=== PATIENT | female | born 1985 | race Caucasian/White ===

== ENCOUNTER 2016-09-06 08:58 | Emergency (ER) | payer OTHER ==
[2016-09-06 09:15] VITALS: BP 143/70; PULSE 82; TEMP 98.2; BMI 33.2
--- NOTE | 2016-09-06 09:45 | PDOC ---
[id number] 4d NECK PAIN Time Seen by Provider: 09/06/16 09:29 History Source: Patient Exam Limitations: No Limitations - History of Present Illness Initial Comments: 09/06/16 10:07 My Chief Complaint: rt. sided neck pain History of present illness: Patient is a 31-year-old female with a history of gerd here today complaining of right-sided neck pain that radiates to her right mid shoulder area for 10 days with movement. Patient denies any numbness of her right arm radiation of pain down her right arm. Patient denies any injury. Patient has full range of motion of her right arm. 09/06/16 10:09 09/06/16 10:15 09/07/16 19:27 Timing/Duration: getting worse Severity: severe Associated Symptoms: reports: denies symptoms Past History - Past Medical History Allergies/Adverse Reactions: Allergies Allergy/AdvReac Type Severity Reaction Status Date / Time No Known Allergies Allergy Verified 09/06/16 09:12 Home Medications: Ambulatory Orders Cyclobenzaprine HCl [Flexeril -] 10 mg PO Q8H PRN #21 tablet 09/06/16 Naproxen [Naprosyn -] 500 mg PO BID PRN #14 tablet 09/06/16 Anemia: No Asthma: No Cancer: No Cardiac Disorders: No CVA: No COPD: No CHF: No Dementia: No Diabetes: No GI Disorders: Yes (acid reflux) Disorders: No HTN: No Hypercholesterolemia: No Liver Disease: No Seizures: No Thyroid Disease: No - Surgical History Abdominal Surgery: Yes Cholecystectomy: Yes - Reproductive History (#): 2 Para: 1 Cervical CA: No Dysfunctional Uterine Bleeding: No Ectopic : No Endometrial CA: No Endometriosis: No Ovarian CA: No PID: No Polycystic Ovaries: No Therapeutic (s) & number: No Tubal Ligation: No Uterine Fibroids: No Oophorectomy: No - Immunization History Td Vaccination: Yes Immunization Up to Date: Yes - Psycho/Social/Smoking Cessation Hx Anxiety: No Suicidal Ideation: No Smoking Status: No Smoking History: Never smoked Have you smoked in the past 12 months: No Number of Cigarettes Smoked Daily: 0 Information on smoking cessation initiated: No Hx Alcohol Use: No Drug/Substance Use Hx: No Substance Use Type: None Hx Substance Use Treatment: No Review of Systems - Review of Systems Able to Perform ROS?: Yes Constitutional: No: Symptoms Reported HEENTM: No: Symptoms Reported Respiratory: No: Symptoms reported Cardiac (ROS): No: Symptoms Reported ABD/GI: No: Symptoms Reported : No: Symptoms Reported Musculoskeletal: Yes: Neck Pain (right sided radiates to mid rt. shoulder ) Integumentary: No: Symptoms Reported Neurological: No: Symptoms reported *Physical Exam - Vital Signs Last Vital Signs Temp Pulse Resp BP Pulse Ox 98.2 F 82 18 143/70 100 09/06/16 09:13 09/06/16 09:13 09/06/16 09:13 09/06/16 09:13 09/06/16 09:13 - Physical Exam General Appearance: Yes: Appropriately Dressed Neck: positive: Tender (right lateraal ), Decreased range of motion (all directions ), Tender lateral (rt. ). negative: Trachea midline, Rigidity, Tender midline Respiratory/Chest: positive: Lungs Clear, Normal Breath Sounds. negative: Chest Tender, Respiratory Distress Cardiovascular: positive: Regular Rhythm, Regular Rate, S1, S2 Musculoskeletal: positive: Normal Inspection. negative: CVA Tenderness, CVA Tenderness (R), CVA Tenderness (L), Decreased Range of Motion, Muscle Spasm, Vertebral Tenderness Extremity: positive: Normal Capillary Refill, Normal Inspection, Tender (mid rt. shoulder muscular). negative: Normal Range of Motion (rt. shoulder) Integumentary: positive: Normal Color Neurologic: positive: Alert, Normal Response, Respond to painful stimul (rt. arm ) Medical Decision Making - Medical Decision Making 09/07/16 19:28 Patient is a 31-year-old female with a history of gerd here today complaining of right-sided neck pain that radiates to her right mid shoulder area for 10 days with movement. Patient denies any numbness of her right arm radiation of pain down her right arm. Patient denies any injury. Patient has full range of motion of her right arm. 09/07/16 19:28 rt. Lateral neck radiates to right mid shoulder musculoskeletal Plan: naprosyn 500 mg bid prn pain flexeril 10 mg q 8 hrs prn muscle spasm ortho referral urine hcg negative *DC/Admit/Observation/Transfer Diagnosis at time of Disposition: Neck muscle strain Qualifiers: Encounter type: initial encounter Qualified Code(s): S16.1XXA - Strain of muscle, fascia and tendon at neck level, initial encounter - Discharge Dispostion Disposition: HOME Condition at time of disposition: Stable - Prescriptions Prescriptions: Cyclobenzaprine HCl [Flexeril -] 10 mg PO Q8H PRN #21 tablet PRN Reason: Muscle Spasms Naproxen [Naprosyn -] 500 mg PO BID PRN #14 tablet PRN Reason: Pain - Referrals Referrals: Marcello Diaz [Primary Care Provider] - Cesar Gonzalez MD [Staff Physician] - - Patient Instructions Additional Instructions: Up with orthopedist if pain continues within the next few days and neck area Return to emergency room if any radiation of pain down the arm or numbness of the arm right sided Avoid any strenuous activities or exercise until pain has resolved and you have clearance to resume activities by M.D. Make Sure you eat prior to taking Naprosyn Patient voiced understanding of discharge instructions and all questions were answered
[2016-09-06] MEDS ORDERED: diazePAM 5 MG TABLET PO ONE (10:14)
[2016-09-06] MEDS ORDERED: KETOROLAC TROMETHAMINE 60 MG/2 ML VIAL IM ONE (10:14)
[2016-09-06] MEDS ORDERED: KETOROLAC TROMETHAMINE 60 MG/2 ML VIAL ONE (10:19)
[2016-09-06] MEDS ORDERED: diazePAM 5 MG TABLET ONE (10:20)
== END 2016-09-06 11:00 | disposition home or self-care (01) ==
LOC: JERFT 08:58
PROC: 3E0233Z Introduction of Anti-inflammatory into Muscle, Percutaneous Approach (ICD-10-PCS; principal; 2016-09-06)
DX: S16.1XXA Strain of muscle, fascia and tendon at neck level, initial encounter (principal); X58.XXXA Exposure to other specified factors, initial encounter; Y93.9 Activity, unspecified; Y92.89 Other specified places as the place of occurrence of the external cause; Y99.8 Other external cause status
CPT/HCPCS: 84703; 99281-25

== ENCOUNTER 2017-09-12 19:24 | Emergency (ER) | payer OTHER ==
--- NOTE | 2017-09-12 20:48 | PDOC ---
Rapid Medical Evaluation Time Seen by Provider: 09/12/17 20:45 Medical Evaluation: Allergies Allergy/AdvReac Type Severity Reaction Status Date / Time No Known Allergies Allergy Verified 09/06/16 09:12 09/12/17 20:45 I have performed a brief in-person evaluation of this patient. The patient presents with a chief complaint of with vaginal bleeding today. Patient reports , approximately 8 weeks with vaginal bleeding starting this afternoon no abdominal pain, nausea or dysuria. Pertinent physical exam findings: Nad unlabored breathing non tender abdomen no cva tenderness I have ordered the following: urine urinalysis cbc, bhcg The patient will proceed to the Ed for further evaluation.
[2017-09-12 20:50] VITALS: BP 136/74; PULSE 64; TEMP 98.7; BMI 32.0
[2017-09-12 21:44] LABS: BASO % 0.4 % (0-2.0); EOS % 0.4 % (0-4.5); HEMATOCRIT 37.4 % (32.4-45.2); HEMOGLOBIN 12.3 GM/dL (10.7-15.3); LYMPH % 27.3 % (8-40); MCH 27.7 pg (25.7-33.7); MEAN CELL VOLUME 84.1 fl (80-96); MEAN PLT VOLUME 8.4 fl (7.5-11.1); MONO % 7.1 % (3.8-10.2); NEUT % 64.8 % (42.8-82.8); PLATELET COUNT 301 K/MM3 (134-434); RBC 4.45 M/mm3 (3.60-5.2); RDW 14.2 % (11.6-15.6); WHITE BLOOD COUNT 10.9 K/mm3 (4.0-10.0)
[2017-09-12 21:48] LABS: HCG,QUALITATIVE URINE POSITIVE; URINE APPEARANCE CLEAR; URINE BILIRUBIN NEGATIVE (NEGATIVE); URINE BLOOD NEGATIVE (NEGATIVE); URINE COLOR STRAW; URINE GLUCOSE (UA) NEGATIVE (NEGATIVE); URINE KETONE NEGATIVE (NEGATIVE); URINE LEUK ESTERASE NEGATIVE (NEGATIVE); URINE NITRITE NEGATIVE (NEGATIVE); URINE PROTEIN NEGATIVE (NEGATIVE); URINE UROBILINOGEN NEGATIVE mg/dL (0.2-1.0)
--- NOTE | 2017-09-13 01:07 | PDOC ---
History of Present Illness - General History Source: Patient Exam Limitations: No Limitations - History of Present Illness Initial Comments: 09/13/17 01:08 The patient is a 32 year old female who is , approximately 8 weeks by LMP who presents to the ED complaining of mild vaginal bleeding that began this afternoon. The patient denies any fever, chills, or suprapubic pain. She denies chest pain or lightheadedness. She denies any urinary complaints. She denies abnormal vaginal discharge. [facility]: Dr. Qiana Funes but has not established care for this <Yuli Estrella - Last Filed: 09/13/17 01:46> <Suki Negron - Last Filed: 09/13/17 01:53> - General Chief Complaint: Vaginal Bleeding Stated Complaint: VAGINAL BLEEDING/8 WKS Time Seen by Provider: 09/12/17 20:45 Past History <Yuli Estrella - Last Filed: 09/13/17 01:46> - Past Medical History Anemia: No Asthma: No Cancer: No Cardiac Disorders: No CVA: No COPD: No CHF: No Dementia: No Diabetes: No GI Disorders: Yes (acid reflux) Disorders: No HTN: No Hypercholesterolemia: No Liver Disease: No Seizures: No Thyroid Disease: No - Surgical History Abdominal Surgery: Yes Cholecystectomy: Yes - Reproductive History (#): 2 Para: 1 Cervical CA: No Dysfunctional Uterine Bleeding: No Ectopic : No Endometrial CA: No Endometriosis: No Ovarian CA: No PID: No Polycystic Ovaries: No Therapeutic (s) & number: No Tubal Ligation: No Uterine Fibroids: No Oophorectomy: No - Immunization History Td Vaccination: Yes Immunization Up to Date: Yes - Suicide/Smoking/Psychosocial Hx Smoking Status: No Smoking History: Never smoked Have you smoked in the past 12 months: No Number of Cigarettes Smoked Daily: 0 Information on smoking cessation initiated: No Hx Alcohol Use: No Drug/Substance Use Hx: No Substance Use Type: None Hx Substance Use Treatment: No <Suki Negron - Last Filed: 09/13/17 01:53> - Past Medical History Allergies/Adverse Reactions: Allergies Allergy/AdvReac Type Severity Reaction Status Date / Time No Known Allergies Allergy Verified 09/13/17 01:15 Home Medications: Ambulatory Orders Cyclobenzaprine HCl [Flexeril -] 10 mg PO Q8H PRN #21 tablet 09/06/16 Naproxen [Naprosyn -] 500 mg PO BID PRN #14 tablet 09/06/16 Review of Systems - Review of Systems Able to Perform ROS?: Yes Comments:: 09/13/17 01:10 CONSTITUTIONAL: Absent: fever, chills, diaphoresis, generalized weakness, malaise, loss of appetite HEENT: Absent: rhinorrhea, nasal congestion, throat pain, throat swelling, difficulty swallowing, mouth swelling, ear pain, eye pain, visual Changes CARDIOVASCULAR: Absent: chest pain, syncope, palpitations, irregular heart rate, lightheadedness , peripheral edema RESPIRATORY: Absent: cough, shortness of breath, dyspnea with exertion, orthopnea, wheezing, stridor, hemoptysis GASTROINTESTINAL: Absent: abdominal pain, abdominal distension, nausea, vomiting, diarrhea, constipation, melena, hematochezia GENITOURINARY: Present: vaginal bleeding Absent: dysuria, frequency, urgency, hesitancy, hematuria, flank pain, genital pain MUSCULOSKELETAL: Absent: myalgia, arthralgia, joint swelling SKIN: Absent: rash, itching, pallor HEMATOLOGIC/IMMUNOLOGIC: Absent: easy bleeding, easy bruising, lymphadenopathy, frequent infections ENDOCRINE: Absent: unexplained weight gain, unexplained weight loss, heat intolerance, cold intolerance NEUROLOGIC: Absent: headache, focal weakness or paresthesias, dizziness, unsteady gait, seizure, mental status changes, bladder or bowel incontinence PSYCHIATRIC: Absent: anxiety, depression, suicidal or homicidal ideation, hallucinations. <Yuli Estrella - Last Filed: 09/13/17 01:46> *Physical Exam - Vital Signs Last Vital Signs Temp Pulse Resp BP Pulse Ox 98.7 F 64 20 136/74 99 09/12/17 20:46 09/12/17 20:46 09/12/17 20:46 09/12/17 20:46 09/12/17 20:46 - Physical Exam Comments: 09/13/17 01:12 GENERAL: Well developed, well nourished. Awake and alert. No acute distress. HEENT: Normocephalic, atraumatic. PERRLA, EOMI. No conjunctival pallor. Sclera are non- icteric. Moist mucous membranes. Oropharynx is clear. NECK: Supple. Full ROM. No JVD. Carotid pulses 2+ and symmetric, without bruits. No thyromegaly. No lymphadenopathy. CARDIOVASCULAR: Regular rate and rhythm. No murmurs, rubs, or gallops. Distal pulses are 2+ and symmetric. PULMONARY: No evidence of respiratory distress. Lungs clear to auscultation bilaterally. No wheezing, rales or rhonchi. ABDOMINAL: Soft. Non-tender. Non-distended. No rebound or guarding. No organomegaly. Normoactive bowel sounds. MUSCULOSKELETAL Normal range of motion at all joints. No bony deformities or tenderness. No CVA tenderness. EXTREMITIES: No cyanosis. No clubbing. No edema. No calf tenderness. SKIN: Warm and dry. Normal capillary refill. No rashes. No jaundice. NEUROLOGICAL: Alert, awake, appropriate. Cranial nerves 2-12 intact. No deficits to light touch and temperature in face, upper extremities and lower extremities. No motor deficits in the in face, upper extremities and lower extremities. Normoreflexic in the upper and lower extremities. Normal speech. Gait is normal without ataxia. PSYCHIATRIC: Cooperative. Good eye contact. Appropriate mood and affect. <Yuli Estrella - Last Filed: 09/13/17 01:46> - Vital Signs Last Vital Signs Temp Pulse Resp BP Pulse Ox 98.7 F 64 20 136/74 99 09/12/17 20:46 09/12/17 20:46 09/12/17 20:46 09/12/17 20:46 09/12/17 20:46 <Suki Negron - Last Filed: 09/13/17 01:53> ED Treatment Course - LABORATORY CBC & Chemistry Diagram: 09/12/17 21:22 - ADDITIONAL ORDERS Additional order review: Laboratory Results 09/12/17 09/12/17 21:22 21:00 Beta HCG, Quant [id number] Urine Color Straw Urine Appearance Clear Urine pH 6.0 Ur Specific Orange 1.011 Urine Protein Negative Urine Glucose (UA) Negative Urine Ketones Negative Urine Blood Negative Urine Nitrite Negative Urine Bilirubin Negative Urine Urobilinogen Negative Ur Leukocyte Esterase Negative Urine HCG, Qual Positive 09/12/17 21:22 RBC 4.45 D MCV 84.1 MCHC 33.0 RDW 14.2 MPV 8.4 Neutrophils % 64.8 D Lymphocytes % 27.3 D Monocytes % 7.1 Eosinophils % 0.4 D Basophils % 0.4 - RADIOLOGY Radiograph Interpretation: 09/13/17 01:46 First trimester US, preliminary reading by Imaging telephonic rn IMPRESSION: Live IUP with estimated age of 8 weeks zero days with small proximal subchorionic bleed. 2.8 cm probable right ovarian corpus luteum without torsion or free fluid. THIS DOCUMENT HAS BEEN ELECTRONICALLY SIGNED Nito Rios MD <Yuli Estrella - Last Filed: 09/13/17 01:46> - LABORATORY CBC & Chemistry Diagram: 09/12/17 21:22 - ADDITIONAL ORDERS Additional order review: Laboratory Results 09/12/17 09/12/17 21:22 21:00 Beta HCG, Quant [id number] Urine Color Straw Urine Appearance Clear Urine pH 6.0 Ur Specific Orange 1.011 Urine Protein Negative Urine Glucose (UA) Negative Urine Ketones Negative Urine Blood Negative Urine Nitrite Negative Urine Bilirubin Negative Urine Urobilinogen Negative Ur Leukocyte Esterase Negative Urine HCG, Qual Positive 09/12/17 21:22 RBC 4.45 D MCV 84.1 MCHC 33.0 RDW 14.2 MPV 8.4 Neutrophils % 64.8 D Lymphocytes % 27.3 D Monocytes % 7.1 Eosinophils % 0.4 D Basophils % 0.4 - RADIOLOGY Radiology Studies Ordered: Category Date Time Status TRANSVAGINAL US PREG [US] Stat Ultrasound 09/13/17 00:41 Ordered <Suki Negron - Last Filed: 09/13/17 01:53> Medical Decision Making - Medical Decision Making 09/13/17 01:53 pt states she is rh positive <Suki Negron - Last Filed: 09/13/17 01:53> *DC/Admit/Observation/Transfer - Attestations Scribe Attestion: 09/13/17 01:12 Documentation prepared by Yuli Estrella, acting as expert medical writer for Suki Negron MD. <Yuli Estrella - Last Filed: 09/13/17 01:46> <Suki Negron - Last Filed: 09/13/17 01:53> Diagnosis at time of Disposition: Threatened - Discharge Dispostion Disposition: HOME Condition at time of disposition: Stable - Referrals Referrals: Marcello Diaz [Primary Care Provider] - - Patient Instructions Printed Discharge Instructions: DI for Threatened Additional Instructions: please follow up with your recreation teacher - Post Discharge Activity
== END 2017-09-13 02:15 | disposition home or self-care (01) ==
LOC: JER 19:24
DX: O26.891 Other specified pregnancy related conditions, first trimester (principal); Z3A.08 8 weeks gestation of pregnancy; O20.0 Threatened abortion
CPT/HCPCS: 36415; 76817-TC; 81003; 84702; 84703; 85025; 99281-25

== ENCOUNTER 2017-12-29 20:20 | Inpatient (IN) | payer OTHER ==
[2017-12-29] MEDS ORDERED: DEXTROSE 5%-LACTATED RINGERS 500 ML IV ONE (23:30)
[2017-12-30] MEDS ORDERED: DEXTROSE 5%-LACTATED RINGERS 1,000 ML IV SCH (00:30)
[2017-12-30 01:14] VITALS: PULSE 71; TEMP 98
[2017-12-30] MEDS ORDERED: BETAMET ACET/BETAMET NA PH 30 MG/5 ML VIAL IM ONE (02:55)
[2017-12-30] MEDS ORDERED: TERBUTALINE SULFATE 1 MG/1 ML VIAL SQ ONE ×2 (02:55→03:07)
[2017-12-30] MEDS ORDERED: BETAMET ACET/BETAMET NA PH 30 MG/5 ML VIAL ONE (03:17)
[2017-12-30 05:12] VITALS: BP 112/70; BMI 34.2
--- NOTE | 2017-12-30 05:57 | HP ---
Past Medical History - Primary Care Physician PCP:: Eli Ngo - Admission Chief Complaint: 32yo P1 @ 23.4 wks c/o contructions, no VB, no LOF, +FM History of Present Illness: 1. LEEP x 2 2. c/s x 1 3. several episodes of VB this , marginal posterior placenta previa 4. former smoker History Source: Patient, Medical Record Limitations to Obtaining History: No Limitations - Past Medical History ...: 3 ...Para: 1 (FT c/s for NRFHR) ...Term: 1 ...: 0 ...Spon : 2 ...Induced : 0 ...Multiple Gestation: 0 ...LMP: 07/22/17 ... Weeks Gestation by Dates: 23.4 ...EDC by Dates: 04/27/18 ...EDC by Sono: 04/24/18 Heme/Onc: Yes: Anemia - Past Surgical History Past Surgical History: Yes: Cholecystectomy, Hx Myomectomy: No Hx Transabdominal Cerclage: No Additional Surgical History: LEEP x 2. D&C - Smoking History Smoking history: Former smoker Have you smoked in the past 12 months: No Aproximately how many cigarettes per day: 0 - Alcohol/Substance Use Hx Alcohol Use: No - Social History History of Recent Travel: No Home Medications - Allergies Allergies/Adverse Reactions: Allergies Allergy/AdvReac Type Severity Reaction Status Date / Time No Known Allergies Allergy Verified 12/30/17 00:56 - Home Medications Home Medications: Ambulatory Orders Vit Calc,Iron,Folic [ Vitamins] 1 tab PO DAILY 12/10/17 Family Disease History - Family Disease History Family Disease History: CA: Grandparent (Ovarian CA) Review of Systems - Review of Systems Constitutional: reports: No Symptoms Eyes: reports: No Symptoms HENT: reports: No Symptoms Neck: reports: No Symptoms Cardiovascular: reports: No Symptoms Respiratory: reports: No Symptoms Gastrointestinal: reports: No Symptoms Genitourinary: reports: No Symptoms Breasts: reports: No Symptoms Reported Musculoskeletal: reports: No Symptoms Integumentary: reports: No Symptoms Neurological: reports: No Symptoms Endocrine: reports: No Symptoms Hematology/Lymphatic: reports: No Symptoms Psychiatric: reports: No Symptoms Physical Exam - Maternity Vital Signs: Vital Signs Temperature 98.0 F 12/30/17 04:59 Pulse Rate 71 12/30/17 04:59 Respiratory Rate 18 12/30/17 04:59 Blood Pressure 112/70 12/30/17 04:59 O2 Sat by Pulse Oximetry (%) Constitutional: Yes: Well Nourished, No Distress Eyes: Yes: WNL, Conjunctiva Clear HENT: Yes: WNL, Atraumatic, Normocephalic Neck: Yes: WNL, Supple, Trachea Midline Cardiovascular: Yes: WNL, Regular Rate and Rhythm Lungs: Clear to auscultation Breast(s): Yes: WNL - Abdominal Exam/OB Fundal Height: 23 Number of Fetuses: Single Presentation: Vertex Contractions: Yes Regularity: Regular Intensity: Mild/Mod Monitor Mode: External Heart Rate (range): 139 Heart Rate Location: Midline (120's appropriate for gestational age) - Vaginal Exam/OB Vaginal Bleediing: No Speculum Exam: No Dilatation (cm): 0 Effacement (%): 0 Amniotic Membrane Status: Intact Imaging - Results Ultrasound: Report Reviewed (Vertex. Cervix 2cm without funneling, posterior placenta 12/30/17 US from 12/14/17 Cervical length 4.5cm), Other Assessment/Plan 32yo P1 @ 23.4wks in labor, shortening cervix 1Liter IVF hydration One dose of terbutaline 0.2mg SQ given Betamethasone given Transfer to [facility] Dr. Esparza excepted the transfer Patient is stable, constructions slowed down She consented to transfer
== END 2017-12-30 04:25 | disposition short-term general hospital (02) | DRG 778 ==
LOC: JDEL 20:20 → JLDR 12-30 02:55
PROVIDERS: ADMIT Obstetrics & Gynecology; ATTEND Obstetrics & Gynecology
DX: O60.02 Preterm labor without delivery, second trimester (principal); O26.872 Cervical shortening, second trimester; Z3A.23 23 weeks gestation of pregnancy; Z87.891 Personal history of nicotine dependence
CPT/HCPCS: 76801-TC; 76817-TC; 96372

== ENCOUNTER 2018-02-07 05:39 | Emergency (ER) | payer OTHER ==
[2018-02-07 06:05] VITALS: BMI 33.0
--- NOTE | 2018-02-07 09:56 | PDOC ---
History of Present Illness <Oskar Bell - Last Filed: 02/07/18 11:09> - History of Present Illness Initial Comments: 02/07/18 09:40 "The patient is a 32 year old female with a significant PMH of anemia and recent delivery via (5 weeks ago, child born prematurely & currently in NICU) who presents to the emergency department with vaginal bleeding beginning 3 days ago. The patient describes her vaginal bleeding as heavier than her usual periods, going through about 1 pad an hour. The patient denies any clotting. She has not had any periods since her delivery. Denies abdominal pain. Denies CP/SOB/palpitations. The patient states she has a follow up appointment with her [facility] this upcoming Monday. The patient denies chest pain, shortness of breath, headache and dizziness. Denies fever, chills, nausea, vomit, diarrhea and constipation. Denies dysuria, frequency, urgency and hematuria. Allergies: NKA Past surgical history: . Cholecystectomy. Social history: No reported cigarette, alcohol, or drug use. PCP: Dr. Tristen Hess " <Santos Bocanegra - Last Filed: 02/07/18 12:09> - General Chief Complaint: Revisit,Wound Recheck Stated Complaint: S/P C/SECTION,BLEEDING WOUND Time Seen by Provider: 02/07/18 08:18 Past History <Oskar Bell - Last Filed: 02/07/18 11:09> - Past Medical History Anemia: No Asthma: No Cancer: No Cardiac Disorders: No CVA: No COPD: No CHF: No Dementia: No Diabetes: No GI Disorders: Yes (acid reflux) Disorders: No HTN: No Hypercholesterolemia: No Liver Disease: No Seizures: No Thyroid Disease: No - Surgical History Abdominal Surgery: Yes Cholecystectomy: Yes - Reproductive History (#): 2 Para: 1 Cervical CA: No Dysfunctional Uterine Bleeding: No Ectopic : No Endometrial CA: No Endometriosis: No Ovarian CA: No PID: No Polycystic Ovaries: No Therapeutic (s) & number: No Tubal Ligation: No Uterine Fibroids: No Oophorectomy: No - Immunization History Td Vaccination: Yes Immunization Up to Date: Yes - Suicide/Smoking/Psychosocial Hx Smoking Status: No Smoking History: Never smoked Have you smoked in the past 12 months: No Number of Cigarettes Smoked Daily: 0 Information on smoking cessation initiated: No Hx Alcohol Use: No Drug/Substance Use Hx: No Substance Use Type: None Hx Substance Use Treatment: No <Santos Bocanegra - Last Filed: 02/07/18 12:09> - Past Medical History Allergies/Adverse Reactions: Allergies Allergy/AdvReac Type Severity Reaction Status Date / Time No Known Allergies Allergy Verified 02/07/18 06:05 Home Medications: Ambulatory Orders Ferrous Sulfate 325 mg PO DAILY 02/07/18 Review of Systems - Review of Systems Comments:: 02/07/18 09:56 "GENERAL/CONSTITUTIONAL: No fever or chills. No weakness. HEAD, EYES, EARS, NOSE AND THROAT: No change in vision. No ear pain or discharge. No sore throat. CARDIOVASCULAR: No chest pain or shortness of breath. RESPIRATORY: No cough, wheezing, or hemoptysis. GASTROINTESTINAL: No nausea, vomiting, diarrhea or constipation. GENITOURINARY: (+) Vaginal bleeding. No dysuria, frequency, or change in urination. MUSCULOSKELETAL: No joint or muscle swelling or pain. No neck or back pain. SKIN: No rash NEUROLOGIC: No headache, vertigo, loss of consciousness, or change in strength/ sensation. ENDOCRINE: No increased thirst. No abnormal weight change. HEMATOLOGIC/LYMPHATIC: No anemia, easy bleeding, or history of blood clots. ALLERGIC/IMMUNOLOGIC: No hives or skin allergy. " <Marva Bocanegraan - Last Filed: 02/07/18 12:09> *Physical Exam - Vital Signs Last Vital Signs Temp Pulse Resp BP Pulse Ox 97.9 F 67 16 125/78 99 02/07/18 06:02 02/07/18 06:02 02/07/18 06:02 02/07/18 06:02 02/07/18 06:02 <Oskar Bell - Last Filed: 02/07/18 11:09> - Vital Signs Last Vital Signs Temp Pulse Resp BP Pulse Ox 97.9 F 67 16 125/78 99 02/07/18 06:02 02/07/18 06:02 02/07/18 06:02 02/07/18 06:02 02/07/18 06:02 - Physical Exam Comments: 02/07/18 09:56 "GENERAL: Awake, alert, and fully oriented, in no acute distress. HEAD: No signs of trauma EYES: PERRLA, EOMI, sclera anicteric, conjunctiva clear ENT: Auricles normal inspection, hearing grossly normal, nares patent, oropharynx clear without exudates. Moist mucosa NECK: Nontender, no stepoffs, Normal ROM, supple, no lymphadenopathy, JVD, or masses LUNGS: Breath sounds equal, clear to auscultation bilaterally. No wheezes, and no crackles HEART: Regular rate and rhythm, normal S1 and S2, no murmurs, rubs or gallops ABDOMEN: Soft, nontender, normoactive bowel sounds. No guarding, no rebound. No masses EXTREMITIES: Normal range of motion, no edema. No clubbing or cyanosis. No cords , erythema, or tenderness NEUROLOGICAL: Cranial nerves II through XII intact. 5/5 strength and sensation in all extremities, Normal speech, normal gait, normal cerebellar function SKIN: Warm, Dry, normal turgor, no rashes or lesions noted. " <Santos Bocanegra - Last Filed: 02/07/18 12:09> ED Treatment Course - LABORATORY CBC & Chemistry Diagram: 02/07/18 10:50 02/07/18 10:50 <Oskar Bell - Last Filed: 02/07/18 11:09> - LABORATORY CBC & Chemistry Diagram: 02/07/18 10:50 02/07/18 10:50 - RADIOLOGY Radiology Studies Ordered: Category Date Time Status TRANSVAGINAL ULTRASOUND US [US] Stat Ultrasound 02/07/18 08:35 Ordered <Santos Bocanegra - Last Filed: 02/07/18 12:09> Medical Decision Making - Medical Decision Making 02/07/18 09:57 32 F with vaginal bleeding after C section 5 weeks ago. Likely normal menstrual period. Pt with no fevers or abdominal pain to suggest endometritis, and this would be unlikely as pt delivered 5 weeks ago. Retained POCs also unlikely given this time frame. Will evaluate for anemia given pt's history. - Labs - TVUS 02/07/18 12:08 Labs wnl, no signs of anemia. TVUS unremarkable. Pt is well appearing, with normal vitals. Clinically stable for DC at this time. I discussed the physical exam findings, ancillary test results and final diagnoses with the patient. I answered all of the patient's questions. The patient was satisfied with the care received and felt comfortable with the discharge plan and treatment plan. The patient agrees to follow up with the primary care physician within 24-72 hours. <Santos Bocanegra - Last Filed: 02/07/18 12:09> *DC/Admit/Observation/Transfer - Attestations Scribe Attestion: 02/07/18 11:10 Documentation prepared by Oskar Bell, acting as medical sales for Santos Bocanegra MD. <Oskar Bell - Last Filed: 02/07/18 11:09> - Attestations Physician Attestion: 02/07/18 12:09 I, Dr. Santos Bocanegra MD, attest that this document has been prepared under my direction and personally reviewed by me in its entirety. I further attest, that it accurately reflects all work, treatment, procedures and medical decision -making performed by me. <Santos Bocanegra - Last Filed: 02/07/18 12:09> Diagnosis at time of Disposition: Vaginal bleeding - Discharge Dispostion Disposition: HOME Condition at time of disposition: Fair - Referrals Referrals: Tristen Hess MD [Primary Care Provider] - - Patient Instructions Printed Discharge Instructions: DI for Vaginal Bleeding Additional Instructions: Please follow up with your ecmo specialist as soon as possible for further evaluation of your bleeding. Your labwork today showed that you are not anemic. Your ultrasound did not show anything concerning either. However, if you experience worsening bleeding, abdominal pain, fevers, lightheadedness, or any other concerning symptoms, return to the ER immediately. - Post Discharge Activity
[2018-02-07 11:16] LABS: BASO % 0.5 % (0-2.0); EOS % 0.1 % (0-4.5); HEMATOCRIT 35.2 % (32.4-45.2); HEMOGLOBIN 11.4 GM/dL (10.7-15.3); LYMPH % 18.1 % (8-40); MCH 27.1 pg (25.7-33.7); MCHC 32.4 g/dl (32.0-36.0); MEAN CELL VOLUME 83.6 fl (80-96); MEAN PLT VOLUME 8.4 fl (7.5-11.1); MONO % 5.1 % (3.8-10.2); NEUT % 76.2 % (42.8-82.8); PLATELET COUNT 350 K/MM3 (134-434); RBC 4.21 M/mm3 (3.60-5.2); RDW 14.8 % (11.6-15.6)
[2018-02-07 11:28] LABS: URINE APPEARANCE SLCLOUDY; URINE BILIRUBIN NEGATIVE (<2.0 mg/dL); URINE COLOR YELLOW; URINE GLUCOSE (UA) NEGATIVE (NEGATIVE); URINE KETONE NEGATIVE (NEGATIVE); URINE LEUK ESTERASE NEGATIVE (NEGATIVE); URINE NITRITE NEGATIVE (NEGATIVE); URINE PROTEIN NEGATIVE (NEGATIVE); URINE UROBILINOGEN NEGATIVE mg/dL (0.2-1.0)
[2018-02-07 11:33] LABS: ALBUMIN 3.9 g/dl (3.4-5.0); ALK PHOS 108 U/L (45-117); ANION GAP 8 (8-16); BILIRUBIN,TOTAL 0.4 mg/dL (0.2-1.0); BLOOD UREA NITROGEN 7 mg/dL (7-18); CALCIUM 8.8 mg/dL (8.5-10.1); CHLORIDE 104 mmol/L (98-107); CO2 27 mmol/L (21-32); CREATININE 0.7 mg/dL (0.55-1.02); EPI CELLS RARE /HPF (FEW); GLUCOSE,RANDOM 91 mg/dL (74-106); POTASSIUM 4.3 mmol/L (3.5-5.1); SGOT/AST 14 U/L (15-37); SGPT/ALT 25 U/L (12-78); SODIUM 139 mmol/L (136-145); URINE MUCUS RARE
[2018-02-07 13:33] VITALS: BP 122/69; PULSE 72; TEMP 97.8
== END 2018-02-07 13:33 | disposition home or self-care (01) ==
LOC: JER 05:39
DX: N93.9 Abnormal uterine and vaginal bleeding, unspecified (principal); Z98.890 Other specified postprocedural states
CPT/HCPCS: 36415; 76830-TC; 80053; 81003; 81015; 84702; 85025; 86850; 86900; 86901; 99282-25

== ENCOUNTER 2018-10-01 19:36 | Emergency (ER) | payer OTHER | END 2018-10-02 01:40 | disposition home or self-care (01) | LOC: JER 10-02 01:40 ==

== ENCOUNTER 2019-04-26 17:38 | Emergency (ER) | payer OTHER ==
--- NOTE | 2019-04-26 17:56 | PDOC ---
Rapid Medical Evaluation Time Seen by Provider: 04/26/19 17:55 Medical Evaluation: Allergies Allergy/AdvReac Type Severity Reaction Status Date / Time No Known Allergies Allergy Verified 10/01/18 20:01 04/26/19 17:55 I have performed a brief in-person evaluation of this patient. The patient presents with a chief complaint of:back pain at work today Pertinent physical exam findings:stable I have ordered the following:nothing The patient will proceed to the ED for further evaluation. Discharge Disposition - Diagnosis Back pain Qualifiers: Back pain location: low back pain Chronicity: acute Back pain laterality: unspecified Sciatica presence: without sciatica Qualified Code(s): M54.5 - Low back pain - Referrals - Patient Instructions - Post Discharge Activity
[2019-04-26 17:58] VITALS: BP 134/74; PULSE 85; TEMP 98.2; BMI 34.0
[2019-04-26] MEDS ORDERED: NAPROXEN 500 MG TABLET (FP) PO ONE (18:25)
[2019-04-26] MEDS ORDERED: NAPROXEN 500 MG TABLET (FP) ONE (18:28)
--- NOTE | 2019-04-26 18:29 | PDOC ---
History of Present Illness - General Chief Complaint: Back Pain Stated Complaint: BACK SPASMS Time Seen by Provider: 04/26/19 17:55 History Source: Patient Exam Limitations: No Limitations - History of Present Illness Initial Comments: 04/26/19 18:26 CHIEF COMPLAINT: Lower back pain HISTORY OF PRESENT ILLNESS: 34-year-old woman with denies medical history presents emergency department for evaluation of right-sided lower back pain which is been intermittent and cramping in nature. 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 She denies any saddle anesthesia, urinary incontinence, urinary retention, fecal incontinence, neurosensory deficits, foot drop, history of IV drug use or cancer. REVIEW OF SYSTEMS: GENERAL: Afebrile, denies any weakness RESPIRATORY: No cough, wheezing, or hemoptysis. CARDIAC: No chest pain or shortness of breath MUSCULOSKELETAL: Pain to generalized lower back. No point tenderness. Pain worse on right than left. SKIN : No erythema, no bruising, no deformity. GI/: Denies any abdominal pain, no urinary difficulty, incontinence or urinary retention. RECTAL: Denies any difficulty this A.m. NEUROLOGICAL: Denies any numbness or tingling. No neurosensory deficits. PHYSICAL EXAM: GENERAL: The patient is awake, alert, and fully oriented, in no acute distress. RESPIRATORY: Lungs clear bilaterally, no rhonchi wheezes or crackles CARDIAC: S1-S2 audible, no murmur rub or gallop MUSCULOSKELETAL: Pain to generalized lower back, nonradiating, no tingling or sensory deficit. Less than 2 second cap refill, +2 pedal pulses. No spinal point tenderness. Normal reflexive and no deficits to sensation or strength. 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 Normal 2 point discrimination present. GI/: Abdomen soft, nontender, nondistended. No rebound tenderness. No masses palpable. RECTAL: Deferred patient with no neurological findings SKIN: Warm, Dry, normal turgor, no erythema, no edema no bruising. 04/26/19 18:28 Past History - Past Medical History Allergies/Adverse Reactions: Allergies Allergy/AdvReac Type Severity Reaction Status Date / Time No Known Allergies Allergy Verified 04/26/19 17:56 Home Medications: Ambulatory Orders Ferrous Sulfate 325 mg PO DAILY 02/07/18 Famotidine [Pepcid -] 20 mg PO BID #14 tablet 10/02/18 Mag Hydrox/Al Hydrox/Simeth [Mylanta Suspension -] 30 ml PO Q6H #1 bottle Anemia: No Asthma: No Cancer: No Cardiac Disorders: No CVA: No COPD: No CHF: No Dementia: No Diabetes: No GI Disorders: Yes (acid reflux) Disorders: No HTN: No Hypercholesterolemia: No Liver Disease: No Seizures: No Thyroid Disease: No - Surgical History Abdominal Surgery: Yes Cholecystectomy: Yes - Reproductive History (#): 2 Para: 1 Cervical CA: No Dysfunctional Uterine Bleeding: No Ectopic : No Endometrial CA: No Endometriosis: No Ovarian CA: No PID: No Polycystic Ovaries: No Therapeutic (s) & number: No Tubal Ligation: No Uterine Fibroids: No Oophorectomy: No - Immunization History Td Vaccination: Yes Immunization Up to Date: Yes - Suicide/Smoking/Psychosocial Hx Smoking Status: No Smoking History: Never smoked Have you smoked in the past 12 months: No Number of Cigarettes Smoked Daily: 0 Information on smoking cessation initiated: No Hx Alcohol Use: No Drug/Substance Use Hx: No Substance Use Type: None Hx Substance Use Treatment: No *Physical Exam - Vital Signs Last Vital Signs Temp Pulse Resp BP Pulse Ox 98.2 F 85 16 134/74 100 04/26/19 17:56 04/26/19 17:56 04/26/19 17:56 04/26/19 17:56 04/26/19 17:56 Medical Decision Making - Medical Decision Making 04/26/19 18:27 A/P: 34-year-old woman with right sided lower back pain for one day No CVA tenderness present Able to perform straight leg raises Urinalysis, right urine culture, urine Naprosyn 500 mg orally Reassess 04/26/19 19:25 Urinalysis is unremarkable without blood or signs of infection present. Urine testing is negative. Patient received Naprosyn 500 mg orally is currently pain-free. We'll discharge the patient home to follow-up with her primary doctor for reevaluation of her pain as needed. I discussed the physical exam findings, ancillary test results and final diagnoses with the patient. I answered all of the patient's questions. The patient was satisfied with the care received and felt comfortable with the discharge plan and treatment plan. The patient will call their primary care physician within 24 hours to arrange follow-up and will return to the Emergency Department with any new, persistent or worsening symptoms. Portions of this note have been documented using voice recognition software. As a result, errors may occur in the farm planner process. Effort has been made to correct all grammatical and farm planner error, but some may have been missed. *DC/Admit/Observation/Transfer Diagnosis at time of Disposition: Back pain Qualifiers: Back pain location: low back pain Chronicity: acute Back pain laterality: right Sciatica presence: with sciatica Sciatica laterality: sciatica of right side Qualified Code(s): M54.41 - Lumbago with sciatica, right side - Discharge Dispostion Disposition: HOME Condition at time of disposition: Stable Decision to Admit order: No - Referrals Referrals: Tristen Hess MD [Primary Care Provider] - - Patient Instructions Additional Instructions: Rest. Take Tylenol or naproxen as needed for pain. Follow manufacturers instructions for appropriate dosage. Lidocaine patches can be purchased without a prescription. These can be helpful with this type of pain. Warm moist heat applied to your back may help alleviate pain. Return to emergency department for numbness or tingling to the rectum or genitals, worsening pain, or any other concerns. Thank you very much for choosing us to provide your emergent healthcare needs. - Post Discharge Activity
[2019-04-26 18:44] LABS: PH,URINE 6.5 (5.0-8.0); URINE APPEARANCE Error; URINE BILIRUBIN NEGATIVE (NEGATIVE); URINE COLOR YELLOW; URINE GLUCOSE (UA) NEGATIVE (NEGATIVE); URINE KETONE NEGATIVE (NEGATIVE); URINE LEUK ESTERASE NEGATIVE (NEGATIVE); URINE NITRITE NEGATIVE (NEGATIVE); URINE PROTEIN NEGATIVE (NEGATIVE); URINE UROBILINOGEN 0.2 mg/dL (0.2-1.0)
== END 2019-04-26 19:41 | disposition home or self-care (01) ==
LOC: JERFT 17:38
DX: M54.41 Lumbago with sciatica, right side (principal); K21.9 Gastro-esophageal reflux disease without esophagitis
CPT/HCPCS: 81003; 84703; 99282-25

== ENCOUNTER 2019-07-21 00:12 | Emergency (ER) | payer SELFPAY ==
[2019-07-21 00:44] VITALS: BP 129/74; PULSE 87; TEMP 98.2; BMI 34.0
--- NOTE | 2019-07-21 01:46 | PDOC ---
History of Present Illness - General Chief Complaint: Cold Symptoms Stated Complaint: COLD SYMPTOMS Time Seen by Provider: 07/21/19 01:44 - History of Present Illness Initial Comments: 07/21/19 02:31 34 y/o F no significant medical hx, presents to the ED with 4 days of nasal congestion and cough. Symptoms have progressed from nasal congestion and dry cough, to productive cough (green sputum) and sore throat. She has had body aches and subjective fevers. She denies sick contacts, taking flu shot this year , nausea, vomiting, diarrrhea, bloody stools. 07/21/19 02:35 Past History - Past Medical History Allergies/Adverse Reactions: Allergies Allergy/AdvReac Type Severity Reaction Status Date / Time No Known Allergies Allergy Verified 07/21/19 00:44 Home Medications: Ambulatory Orders Ferrous Sulfate 325 mg PO DAILY 02/07/18 Famotidine [Pepcid -] 20 mg PO BID #14 tablet 10/02/18 Mag Hydrox/Al Hydrox/Simeth [Mylanta Suspension -] 30 ml PO Q6H #1 bottle Azithromycin [Zithromax Tri-Harrison (3 DAYS) -] 500 mg PO DAILY #3 tablet 07/21/19 Anemia: No Asthma: No Cancer: No Cardiac Disorders: No CVA: No COPD: No CHF: No Dementia: No Diabetes: No GI Disorders: Yes (acid reflux) Disorders: No HTN: No Hypercholesterolemia: No Liver Disease: No Seizures: No Thyroid Disease: No - Surgical History Abdominal Surgery: Yes Cholecystectomy: Yes - Reproductive History (#): 2 Para: 1 Cervical CA: No Dysfunctional Uterine Bleeding: No Ectopic : No Endometrial CA: No Endometriosis: No Ovarian CA: No PID: No Polycystic Ovaries: No Therapeutic (s) & number: No Tubal Ligation: No Uterine Fibroids: No Oophorectomy: No - Immunization History Td Vaccination: Yes Immunization Up to Date: Yes - Psycho Social/Smoking Cessation Hx Smoking Status: No Smoking History: Never smoked Have you smoked in the past 12 months: No Number of Cigarettes Smoked Daily: 0 Hx Alcohol Use: No Drug/Substance Use Hx: No Substance Use Type: None Hx Substance Use Treatment: No Review of Systems - Review of Systems Constitutional: No: Night Sweats, Weakness HEENTM: No: Eye Pain, Blurred Vision Respiratory: Yes: Cough. No: Shortness of Breath Cardiac (ROS): No: Chest Pain, Palpitations ABD/GI: No: Abdominal Distended, Diarrhea : No: Burning, Dysuria Musculoskeletal: No: Back Pain, Joint Pain Integumentary: No: Bruising, Change in Color Neurological: Yes: Headache. No: Numbness Hematologic/Lymphatic: No: Blood Clots, Easy Bleeding *Physical Exam - Vital Signs Last Vital Signs Temp Pulse Resp BP Pulse Ox 98.2 F 87 18 129/74 99 07/21/19 00:15 07/21/19 00:15 07/21/19 00:15 07/21/19 00:15 07/21/19 00:15 - Physical Exam Comments: 07/21/19 02:36 PE: GENERAL: Awake, alert, and fully oriented, in no acute distress HEAD: No signs of trauma, normocephalic, atraumatic EYES: PERRLA, EOMI, sclera anicteric, conjunctiva clear ENT: Auricles normal inspection, hearing grossly normal, nares patent, oropharynx clear without exudates. Moist mucosa NECK: Normal ROM, supple, no lymphadenopathy, JVD, or masses LUNGS: No distress, speaks full sentences, faint expiratory wheezing. HEART: Regular rate and rhythm, normal S1 and S2, no murmurs, rubs or gallops, peripheral pulses normal and equal bilaterally. ABDOMEN: Soft, nontender, normoactive bowel sounds. EXTREMITIES : Normal inspection, Normal range of motion, no edema. No clubbing or cyanosis NEUROLOGICAL: Cranial nerves II through XII grossly intact. Normal speech, no focal sensorimotor deficits SKIN: Warm, Dry, normal turgor, no rashes or lesions noted Medical Decision Making - Medical Decision Making 07/21/19 02:37 34 y/o F no significant medical hx, presents to the ED with 4 days of nasal congestion and cough. 07/21/19 02:37 flu swab strep chest x-ray Discharge - Discharge Information Problems reviewed: Yes Clinical Impression/Diagnosis: Cough, Atypical pneumonia Condition: Stable Disposition: HOME - Admission No - Additional Discharge Information Prescriptions: Azithromycin [Zithromax Tri-Harrison (3 DAYS) -] 500 mg PO DAILY #3 tablet - Follow up/Referral Referrals: Tristen Hess MD [Primary Care Provider] - - Patient Discharge Instructions Patient Printed Discharge Instructions: DI for Atypical Pneumonia Additional Instructions: Pneumonia is a lung infection that can cause a fever, cough, and trouble breathing. Please continue all antibiotics as directed until complete. Nutrition is important - eat small frequent meals. Get lots of rest and drink fluids. Call your Primary Care Doctor upon arrival home from the hospital and make a follow-up appointment in the next few days. If your cough worsens, you develop a fever you develop shaking chills, a fast heartbeat, trouble breathing and/or feel you are are breathing much faster than usual, return to the ED. Make sure you wash your hands frequently. - Post Discharge Activity
--- NOTE | 2019-07-21 01:48 | PDOC ---
Attending Attestation - Resident Resident Name: Alvaro Chun - ED Attending Attestation I have performed the following: I have examined & evaluated the patient, The case was reviewed & discussed with the resident, I agree w/resident's findings & plan - HPI HPI: 07/21/19 03:30 Pt comes with cough and cold for a few days. Fever the first day. Now congested. Coughing up green She is not a smoker and she feels warm to the touch, but she has no objective fever. Pt is able to eat and drink and she has no N/V/D - Physicial Exam PE: 07/21/19 03:31 Pt has good air exchange. Pt has no abd tenderness HEENT normal Heart RRR No flank pain - Medical Decision Making 07/21/19 03:40 Negative flu culture and negative strep. Pt will be treated with zpak for an atypical pneumonia. Follow with PMD.
[2019-07-21] MEDS ORDERED: AZITHROMYCIN 250 MG TABLET PO ONE (02:05)
[2019-07-21] MEDS ORDERED: PSEUDOEPHEDRINE HCL 60 MG TABLET PO ONE (02:05)
[2019-07-21] MEDS ORDERED: AZITHROMYCIN 250 MG TABLET ONE (02:29)
[2019-07-21] MEDS ORDERED: PSEUDOEPHEDRINE HCL 60 MG TABLET ONE (02:30)
== END 2019-07-21 03:37 | disposition home or self-care (01) ==
LOC: JER 00:12
DX: J18.9 Pneumonia, unspecified organism (principal)
CPT/HCPCS: 84703; 87070; 87804; 87880; 99282-25

== ENCOUNTER 2019-10-30 11:07 | Emergency (ER) | payer OTHER ==
[2019-10-30 11:19] VITALS: BMI 35.9
[2019-10-30 12:39] VITALS: BP 116/76; PULSE 91; TEMP 98.2
--- NOTE | 2019-10-30 13:06 | PDOC ---
History of Present Illness - General Chief Complaint: Chest Pain Stated Complaint: CHEST PAIN Time Seen by Provider: 10/30/19 11:23 - History of Present Illness Initial Comments: 10/30/19 13:04 34-year-old female with a history of anxiety presents for evaluation of chest pain which radiate up into her eye lasted for about 10 minutes and resolved this occurred this morning she has no symptoms at this time Past History - Past Medical History Allergies/Adverse Reactions: Allergies Allergy/AdvReac Type Severity Reaction Status Date / Time No Known Allergies Allergy Verified 07/21/19 00:44 Home Medications: Ambulatory Orders NK [No Known Home Medication] 10/30/19 Anemia: No Asthma: No Cancer: No Cardiac Disorders: No CVA: No COPD: No CHF: No Dementia: No Diabetes: No GI Disorders: Yes (acid reflux) Disorders: No HTN: No Hypercholesterolemia: No Liver Disease: No Seizures: No Thyroid Disease: No - Surgical History Abdominal Surgery: Yes Cholecystectomy: Yes - Reproductive History (#): 2 Para: 1 Cervical CA: No Dysfunctional Uterine Bleeding: No Ectopic : No Endometrial CA: No Endometriosis: No Ovarian CA: No PID: No Polycystic Ovaries: No Therapeutic (s) & number: No Tubal Ligation: No Uterine Fibroids: No Oophorectomy: No - Immunization History Td Vaccination: Yes Immunization Up to Date: Yes - Psycho Social/Smoking Cessation Hx Smoking Status: No Smoking History: Never smoked Have you smoked in the past 12 months: No Number of Cigarettes Smoked Daily: 0 Information on smoking cessation initiated: No Hx Alcohol Use: No Drug/Substance Use Hx: No Substance Use Type: None Hx Substance Use Treatment: No Review of Systems - Review of Systems Constitutional: No: Fever HEENTM: Yes: See HPI, Eye Pain Respiratory: Yes: See HPI Cardiac (ROS): Yes: Chest Pain *Physical Exam - Vital Signs Last Vital Signs Temp Pulse Resp BP Pulse Ox 98.2 F 91 H 16 116/76 100 10/30/19 12:37 10/30/19 12:37 10/30/19 12:37 10/30/19 12:37 10/30/19 12:37 - Physical Exam 10/30/19 13:05 GENERAL: The patient is awake, alert, and fully oriented, in no acute distress. HEAD: Normal with no signs of trauma. EYES: sclera anicteric, conjunctiva clear. ENT: Ears normal tympanic membranes normal oropharynx clear uvula midline NECK: Normal range of motion LUNGS: Breath sounds equal, clear to auscultation bilaterally. No wheezes, and no crackles. HEART: S1 and S2 without murmur, rub or gallop. ABDOMEN: Soft, nontender, normoactive bowel sounds. No guarding, no rebound. No masses. EXTREMITIES: Normal range of motion, no edema. No clubbing or cyanosis. No cords, erythema, or tenderness. NEUROLOGICAL: Cranial nerves II through XII grossly intact. PSYCH: Normal mood, normal affect. SKIN: Warm, Dry, normal turgor, no rashes or lesions noted. ED Treatment Course - ADDITIONAL ORDERS Additional order review: Laboratory Results 10/30/19 11:33 Urine HCG, Qual Negative - RADIOLOGY Radiology Studies Ordered: Category Date Time Status CHEST PA & LAT [RAD] Stat Radiology 10/30/19 11:23 Completed Medical Decision Making - Medical Decision Making 10/30/19 13:05 Patient with a clear anxiety attack high on my differential. EKG is normal patient is not tachycardic as she presented at triage not with a history of similar episodes. I will have her follow-up with her primary care physician I have reviewed the pathophysiology with the patient. They are in agreement with the treatment plan all questions were answered to their satisfaction. Understanding for follow-up without fail was also conveyed to the patient. Again they are in agreement. Discharge - Discharge Information Problems reviewed: Yes Clinical Impression/Diagnosis: Atypical chest pain Condition: Stable Disposition: HOME - Admission No - Follow up/Referral Referrals: Jozef Lopez MD [Primary Care Provider] - - Patient Discharge Instructions Additional Instructions: Return to the emergency room for worsening symptoms and without fail follow-up with your primary care physician in 2 to 3 days for further evaluation and treatment options. - Post Discharge Activity
--- NOTE | 2019-10-31 14:04 | EKG ---
Test Reason : Blood Pressure : / mmHG Vent. Rate : 085 BPM Atrial Rate : 085 BPM P-R Int : 166 ms QRS Dur : 082 ms QT Int : 358 ms P-R-T Axes : 058 038 031 degrees QTc Int : 426 ms POOR DATA QUALITY, INTERPRETATION MAY BE ADVERSELY AFFECTED NORMAL SINUS RHYTHM LOW VOLTAGE QRS BORDERLINE ECG WHEN COMPARED WITH ECG OF 01-OCT-2018 19:57, NO SIGNIFICANT CHANGE WAS FOUND Confirmed by EDWARD RHODES, ANTONI ([id number]) on 10/31/2019 2:04:34 PM Referred By: Confirmed By:ANTONI LEON MD
== END 2019-10-30 13:20 | disposition home or self-care (01) ==
LOC: JERFT 11:07
DX: R07.89 Other chest pain (principal); F41.9 Anxiety disorder, unspecified
CPT/HCPCS: 71046-TC-FY; 84703; 93005; 93010; 99284-25

== ENCOUNTER 2021-10-12 16:30 | Inpatient (IN) | payer OTHER ==
[2021-10-12] MEDS: DEXTROSE 5%-LACTATED RINGERS 1,000 ML IV SCH (19:45)
[2021-10-12 21:52] VITALS: BMI 37.0
[2021-10-12] MEDS ORDERED: MAGNESIUM 4GM/H20 - 4 GM/100 ML IVPB IVPB SCH (22:00)
[2021-10-12 22:02] LABS: BASO % 0.3 % (0-2.0); EOS % 0.2 % (0-4.5); HEMATOCRIT 32.5 % (32.4-45.2); HEMOGLOBIN 10.9 GM/dL (10.7-15.3); LYMPH % 16.4 % (8-40); MCH 27.2 pg (25.7-33.7); MCHC 33.4 g/dl (32.0-36.0); MEAN CELL VOLUME 81.5 fl (80-96); MEAN PLT VOLUME 8.4 fl (7.5-11.1); MONO % 6.1 % (3.8-10.2); PLATELET COUNT 276 10^3/uL (134-434); RBC 3.99 M/mm3 (3.60-5.2); RDW 15.4 % (11.6-15.6); WHITE BLOOD COUNT 10.5 K/mm3 (4.0-10.0)
[2021-10-12] MEDS ORDERED: AMPICILLIN - 2 GM in SODIUM CHLORIDE 100 ML IVPB ONE (22:05)
[2021-10-12 22:10] LABS: INR 1.03 (0.83-1.09); PROTHROMBIN TIME (PATIENT) 11.8 SEC (9.7-13.0)
[2021-10-12 22:11] LABS: EPI CELLS 12 /uL (0-25.1); HYALINE CASTS 0 /uL (0-3.1); PH,URINE 6.5 (5.0-8.0); URINE APPEARANCE CLEAR; URINE BACTERIA 437 /uL (0-1359); URINE BILIRUBIN NEGATIVE (NEGATIVE); URINE COLOR YELLOW; URINE GLUCOSE (UA) NEGATIVE (NEGATIVE); URINE KETONE NEGATIVE (NEGATIVE); URINE LEUK ESTERASE TRACE (NEGATIVE); URINE NITRITE NEGATIVE (NEGATIVE); URINE PROTEIN NEGATIVE (NEGATIVE); URINE RBC 18 /uL (0-23.9); URINE UROBILINOGEN 0.2 mg/dL (0.2-1.0); URINE WBC 9 /uL (0-25.8)
[2021-10-12 22:13] LABS: ACTIVATED PTT 21.8 SECONDS (25.2-36.5)
[2021-10-12] MEDS ORDERED: AMPICILLIN SODIUM 2 GM VIAL ONE (22:14)
[2021-10-12] MEDS ORDERED: MAGNESIUM 4GM/H20 - 4 GM/100 ML IVPB IVPB ONE (22:14)
[2021-10-12 22:24] LABS: CALCIUM 8.7 mg/dL (8.5-10.1)
[2021-10-12 22:25] LABS: BLOOD UREA NITROGEN 4.4 mg/dL (7-18)
[2021-10-12 22:28] LABS: CREATININE 0.6 mg/dL (0.55-1.3)
[2021-10-12] MEDS: MAGNESIUM SULFATE 20GM/500ML - 20 GM/500 ML INFUS.BAG IVPB SCH (23:00)
[2021-10-12] MEDS ORDERED: ELECTROLYTE-148 SOLN 1,000 ML IV SCH (23:45)
[2021-10-12] MEDS ORDERED: BETAMET ACET/BETAMET NA PH 30 MG/5 ML VIAL IM ONE (23:53)
[2021-10-13] MEDS ORDERED: BETAMET ACET/BETAMET NA PH 30 MG/5 ML VIAL ONE (00:19)
[2021-10-13] MEDS ORDERED: AMPICILLIN SODIUM 1 GM VIAL ONE ×5 (02:43→22:00)
[2021-10-13] MEDS: AMPICILLIN - 1 GM in SODIUM CHLORIDE 100 ML IVPB SCH ×6 (02:45→22:06)
[2021-10-13] MEDS ORDERED: SODIUM CHLORIDE 100 ML IVPB ONE ×2 (10:09→18:07)
[2021-10-13] MEDS ORDERED: BETAMET ACET/BETAMET NA PH 30 MG/5 ML VIAL IM ONE (12:15)
[2021-10-13] MEDS: DEXTROSE 5%-LACTATED RINGERS 1,000 ML IV SCH (12:49)
[2021-10-13] MEDS: MAGNESIUM SULFATE 20GM/500ML - 20 GM/500 ML INFUS.BAG IVPB SCH (14:33)
[2021-10-14] MEDS ORDERED: AMPICILLIN SODIUM 1 GM VIAL ONE (02:04)
[2021-10-14 08:42] VITALS: BP 110/52; PULSE 85; TEMP 98.1
== END 2021-10-14 09:38 | disposition home or self-care (01) | DRG 566 ==
LOC: JDEL 16:30 → JLDR 20:30
PROVIDERS: ADMIT Obstetrics & Gynecology; ATTEND Obstetrics & Gynecology
DX: O30.042 Twin pregnancy, dichorionic/diamniotic, second trimester (principal); O60.02 Preterm labor without delivery, second trimester; O99.212 Obesity complicating pregnancy, second trimester; Z3A.26 26 weeks gestation of pregnancy; O46.8X2 Other antepartum hemorrhage, second trimester
CPT/HCPCS: 36415; 76810-TC; 76817-TC; 80048; 81003; 85025; 85610; 85730; 86780; 86850; 86900; 86901; 96372; C9803; U0003; U0005